=== PATIENT | male | born 1965 | race Caucasian/White ===

== ENCOUNTER 2018-01-21 20:10 | Emergency (ER) | payer MEDICAID, OTHER ==
[~2018-01-21] VITALS: Ht 185.4 cm; Wt 70.3 kg
[2018-01-21] MEDS ORDERED: ACETAMINOPHEN 325 MG TAB PO ONE (21:00)
[2018-01-21 21:05] VITALS: BP 120/77
[2018-01-21] MEDS ORDERED: AMOXICILLIN/CLAVUL 875 MG TAB PO ONE (22:45)
[2018-01-21] MEDS ORDERED: SILVER SULFADIAZINE 1 % TOPICAL CREAM 50GM TOP ONE (22:45)
[2018-01-21] MEDS: cefTRIAXone SOD 1,000 MG VL IM ONE ×2 (22:45→23:30)
[2018-01-21] MEDS ORDERED: TETANUS-DIPTH-ACEL PERTUSSIS 0.5ML SYRG IM ONE (22:45)
[2018-01-21] MEDS ORDERED: HYDROcodone-ACET 10/325MG TAB PO ONE (22:45)
[2018-01-21] MEDS ORDERED: DERMOPLAST 60ML BOTTLE TOP ONE (23:00)
== END 2018-01-22 00:40 | disposition home or self-care (01) ==
LOC: ER 20:17
DX: T23.252A Burn of second degree of left palm, initial encounter (principal); T23.251A Burn of second degree of right palm, initial encounter; T31.0 Burns involving less than 10% of body surface; X08.8XXA Exposure to other specified smoke, fire and flames, initial encounter; Y93.89 Activity, other specified; Y99.8 Other external cause status; Y92.89 Other specified places as the place of occurrence of the external cause
CPT/HCPCS: 90471; 90715; 99284; A6257; 16020; J0696

== ENCOUNTER 2024-11-11 18:37 | Emergency (ER) | payer MEDICAID ==
[~2024-11-11] VITALS: Ht 185.4 cm; Wt 76.5 kg
[2024-11-11 20:30] VITALS: BP 159/96; TEMP 98.5
[2024-11-11 20:54] VITALS: PULSE 72; RESP 18; O2SAT 95
[2024-11-11] MEDS: KETOROLAC TROMETH 60MG/2ML VIAL IM ONE (20:54)
[2024-11-11] MEDS: HYDROcodone-ACET 5/325MG TAB PO ONE (20:54)
[2024-11-11] MEDS: cefTRIAXone SOD 1,000 MG VL IM ONE (20:55)
--- NOTE | 2024-11-11 21:07 | ED.PDOC ---
Eye-HPI HPI Comments 59-year-old male presents to the ED chief complain dental abscess x5 days. Patient states follow up with dental one month ago for major dental work has multiple missing teeth and dental caries. Does have follow up with the appointment in several weeks. Lump with drainage developed on the roof of his mouth over the past five days notes pressure type pain 8/10 on pain scale reports no fevers or chills denies nausea or vomiting or difficulty breathing, chest pain, shortness breath or difficulty swallowing. Chief Complaint: Tooth Pain Time Seen by MD: 18:44 Reviewed Notes: Nurses Notes, Medications, Allergies Allergies: Coded Allergies: NO KNOWN ALLERGIES (Unverified , 01/21/18) Home Meds Active Scripts Ibuprofen (Ibuprofen) 800 Mg Tab, 800 MG PO Q8HP PRN for 4 Days, #12 TAB Prov:JANETH FRANCO 11/11/24 Clindamycin Hcl (Clindamycin Hcl) 300 Mg Cap, 300 MG PO QID for 7 Days, #28 CAP Prov:JANETH FRANCO 11/11/24 Information Source: Patient Mode of Arrival: Ambulatory Past Medical History PAST MEDICAL HISTORY: Denies Surgical History: Denies all surgeries Family History Family History: Unknown Social History Smoker: Non-Smoker Alcohol: Denies ETOH Use Drugs: Denies Drug Use Lives In: Home All Other Systems: Reviewed and Negative (see hpi) Physical Exam General Appearance: No Apparent Distress, Normal HEENT: Pharynx Normal, TMs Normal, Other (Incise abscess left upper palate with noted whitish drainage erythema. Multiple missing teeth. ) Neck: Full Range of Motion, Non-Tender, Normal, Normal Inspection Respiratory: Chest Non-Tender, Lungs Clear, No Accessory Muscle Use, No Respiratory Distress, Normal Breath Sounds Cardiovascular: No Edema, No JVD, No Murmur, No Gallop, Normal Peripheral Pu lses, Regular Rate/Rhythm Breast Exam: Deferred Gastrointestinal: No Organomegaly, Non Tender, No Pulsatile Mass, Normal Bowel Sounds, Soft Genitalia: Deferred Pelvic: Deferred Rectal: Deferred Extremities: No calf tenderness, Normal capillary refill, Normal inspection, Normal range of motion, Non-tender, No pedal edema Musculoskeletal : Apperance: Normal Neurologic: Alert, hose seamer II-XII nml as Tested, No Motor Deficits, Normal Affect, Normal Mood, No Sensory Deficits Cerebellar Function: Normal Reflexes: Normal Skin: Dry, Normal Color, Warm Lymphatic: No Adenopathy Was a procedure done? Was a procedure done?: No EENT DIFF Eye: N/A Mouth: Herpangina, Herpes Simplex Sore Throat: Melquiades's Angina, Peritonsillar Abscess, Peritonsillar Cellulitis, Pharyngitis, Streptococcal X-Ray, Labs, Meds, VS Vital Signs Date Time Temp Pulse Resp B/P (MAP) Pulse Ox O2 Delivery O2 Flow Rate FiO2 11/11/24 20:54 72 18 95 Room Air 11/11/24 20:30 98.5 72 18 159/96 (117) 95 98.5 11/11/24 18:39 98.4 72 16 175/104 98 98.4 Current Medications Medications (Trade) Dose Ordered Sig/Brittani Route Start Time Stop Time Status Last Admin Ceftriaxone Sodium (Rocephin) 1,000 mg ONCE ONCE IM 11/11/24 20:45 11/11/24 20:46 DC 11/11/24 20:55 Ketorolac Tromethamine (Toradol Injection) 60 mg ONCE ONCE IM 11/11/24 20:45 11/11/24 20:46 DC 11/11/24 20:54 Acetaminophen/ Hydrocodone Bitart ([place] 5/325MG Tab) 1 tab ONCE ONCE PO 11/11/24 20:45 11/11/24 20:46 DC 11/11/24 20:54 X-Ray, Labs, Meds, VS Comment Patient given Rocephin 1 g IM to cover infection, Toradol 60 mg IM and [place] 5 mg p.o. for the pain. Reports improvement in symptoms requesting discharge at this time. Script trial of clindamycin and ibuprofen advised to take medication as prescribed side effects discussed advised to consider daily yogurt or probiotic while taking clindamycin. He is to rest increase p.o. fluids with electrolytes. Advised to follow up with his dental appointment. Advised on ER return precautions patient indicates understanding agrees with discharge plan of care. Time of 1ST Reevaluation: 19:00 Reevaluation 1ST: Unchanged Time of 2ND Reevaluation: 21:13 Reevaluation 2ND: Improved Patient Education/Counseling: Diagnosis, Treatment, Prognosis, Need For Follow Up Family Education/Counseling: Diagnosis, Treatment, Prognosis, Need For Follow Up SEPSIS Sepsis Screen Date sepsis recognized/suspect: Nov 11, 2024 Time Sepsis recognized/suspect: 1839 Recent Procedure: No On Antibiotic Therapy: No Respiratory Rate >20: No Heart Rate >90: No Temp<36 C (96.8 F) or >38.3 C: No SBP <90 or MAP <65 mmHG: No New Acute Mental Status Change: No Is the patient on CPAP, BIPAP,: No Vital Signs Date Time Temp Pulse Resp B/P (MAP) Pulse Ox O2 Delivery O2 Flow Rate FiO2 11/11/24 20:54 72 18 95 Room Air 11/11/24 20:30 98.5 72 18 159/96 (117) 95 98.5 11/11/24 18:39 98.4 72 16 175/104 98 98.4 Medications Medications Dose Ordered Sig/Brittani Route Start Time Stop Time Status Last Admin Dose Admin Acetaminophen/ Hydrocodone Bitart 1 tab ONCE ONCE PO 11/11/24 20:45 11/11/24 20:46 DC 11/11/24 20:54 Ceftriaxone Sodium 1,000 mg ONCE ONCE IM 11/11/24 20:45 11/11/24 20:46 DC 11/11/24 20:55 Ketorolac Tromethamine 60 mg ONCE ONCE IM 11/11/24 20:45 11/11/24 20:46 DC 11/11/24 20:54 Departure 1 Departure Time of Disposition: 21:08 Impression: Primary Impression: Abscess of palate Disposition: 01 HOME / SELF CARE / HOMELESS Condition: Stable e-Prescriptions Ibuprofen (Ibuprofen) 800 Mg Tab 800 MG PO Q8HP PRN for 4 Days, #12 TAB Prov: JANETH FRANCO 11/11/24 Clindamycin Hcl (Clindamycin Hcl) 300 Mg Cap 300 MG PO QID for 7 Days, #28 CAP Prov: JANETH FRANCO 11/11/24 Discharged With: Significant Other Critical Care Note Critical Care Time?: No Stability Stability form required: JANETH Mcbride Nov 11, 2024 21:07
[2024-11-11] MEDS ORDERED: IBUP-1456 PO (21:10)
[2024-11-11] MEDS ORDERED: CLIN1CAP70 PO (21:10)
== END 2024-11-11 21:17 | disposition home or self-care (01) ==
LOC: ER 18:37
DX: K04.7 Periapical abscess without sinus (principal); Z79.899 Other long term (current) drug therapy
CPT/HCPCS: 96372; 99284; J0696; J1885